=== PATIENT | female | born 1985 | race Caucasian/White ===

== ENCOUNTER → 2021-03-24 | Outpatient (CLI) | payer OTHER | LOC: KOH-I 12:55 | DX: S80.02XA Contusion of left knee, initial encounter (principal) | CPT/HCPCS: 73564 ==

== ENCOUNTER 2022-01-07 22:59 | Emergency (ER) | payer OTHER ==
[2022-01-07 23:53] LABS: HEMOGLOBIN 14.1 gm/dl (12.3-15.3); RED BLOOD COUNT 4.64 M/UL (4.00-5.10); WHITE BLOOD COUNT 20.8 K/UL (4.5-11.0)
[2022-01-08 00:15] LABS: BUN/CREATININE RATIO 8 (0-10)
== END 2022-01-08 06:02 | disposition home or self-care (01) ==
LOC: ER1 22:59
PROVIDERS: Physician Assistant
DX: U07.1 COVID-19 (principal); G40.409 Other generalized epilepsy and epileptic syndromes, not intractable, without status epilepticus; F17.290 Nicotine dependence, other tobacco product, uncomplicated
CPT/HCPCS: 0240U; 70450; 71045; 80053; 82009; 82550; 82553; 83605; 83690; 83735; 84484; 85025; 93005; 96361; 96374; 99284; G0480

== ENCOUNTER 2022-01-24 07:30 | Emergency (ER) | payer OTHER ==
[2022-01-24 08:31] LABS: HEMOGLOBIN 13.1 gm/dl (12.3-15.3); RED BLOOD COUNT 4.36 M/UL (4.00-5.10); WHITE BLOOD COUNT 8.7 K/UL (4.5-11.0)
[2022-01-24 08:52] LABS: BUN/CREATININE RATIO 11 (0-10)
[2022-01-24] MEDS ORDERED: OMNICEF 300 MG300 MG PO (09:55)
[2022-01-24] MEDS ORDERED: VIMPAT50 MG PO (09:55)
[2022-01-24] MEDS ORDERED: FOLIC ACID1 MG PO (10:18)
== END 2022-01-24 10:34 | disposition home or self-care (01) ==
LOC: ER1 07:30
PROVIDERS: Emergency Medicine
DX: G40.909 Epilepsy, unspecified, not intractable, without status epilepticus (principal); G62.9 Polyneuropathy, unspecified; F17.200 Nicotine dependence, unspecified, uncomplicated; N39.0 Urinary tract infection, site not specified
CPT/HCPCS: 70450; 71045; 80053; 80183; 81001; 84703; 85025; 87086; 93005; 96360; 99284